=== PATIENT | female | born 2000 | race African-American/Black ===

== ENCOUNTER 2025-05-15 09:51 | Emergency (ER) | payer OTHER, SELFPAY ==
[2025-05-15 11:14] LABS: #Basophils Less than 0.03 10x3/uL (0.0-0.2); #Eosinophils 0.07 10x3/uL (0.0-0.5); #Monocytes 0.19 10x3/uL (0.0-1.1); #Neutrophils 2.93 10x3/uL (1.5-8.4); %Basophils 0.2 % (0.0-2.0); %Eosinophils 1.7 % (0.0-6.0); %Lymphocytes 21.3 % (18.0-47.0); %Monocytes 4.7 % (0.0-10.0); %Neutrophils 71.9 % (40.0-75.0); Hematocrit 33.4 % (34.9-44.5); Hemoglobin 11.2 g/dL (12.0-15.5); Mean Corpuscular Hemoglobin 28.3 pg (27.0-33.0); Mean Corpuscular Volume 84.3 fL (81.6-98.3); Platelet Count 286 10x3/uL (150-450); Red Blood Cell (RBC) Count 3.96 10x6/uL (3.90-5.03); White Blood Cell (WBC) Count 4.08 10x3/uL (3.5-10.5)
[2025-05-15 11:34] LABS: ALT (SGPT) Less than 4 U/L (Less than 34); AST (SGOT) 13 U/L (11-34); Albumin 3.8 g/dL (3.1-4.5); Alkaline Phosphatase 29 U/L (40-110); Anion Gap 12 mmol/L (10-20); BUN (Urea Nitrogen) 6 mg/dL (7.0-18.7); Bilirubin, Total 0.2 mg/dL (0.3-1.2); Calc. Creatinine Clearance 0 mL/min (70-130); Calcium 9.1 mg/dL (7.8-10.44); Carbon Dioxide 22 mmol/L (22-29); Chloride 106 mmol/L (98-107); Globulin 3.4 g/dL (2.4-3.5); Glucose 93 mg/dL (70-105); Potassium 3.6 mmol/L (3.5-5.1); Sodium 136 mmol/L (136-145)
[2025-05-15 12:25] LABS: Glucose, Urine (Dipstick) Normal (Negative); Leukocyte 100 (Negative); Protein, Urine (Dipstick) 30 mg/dl (Neg-Trace); Specific Gravity, Urine 1.020 (1.005-1.030)
[2025-05-15 12:27] LABS: Bacteria/HPF 1+ HPF (None Seen); CAUTI Indications for Culture Acute Hematuria; RBC/HPF 21-50 HPF (0-3)
[2025-05-15 12:28] LABS: Urine Culture Reflex Yes Yes
[2025-05-15] MEDS ORDERED: Ibuprofen 200 MG TAB ONE (13:59)
[2025-05-15] MEDS ORDERED: Acetaminophen 500 MG TAB ONE (14:00)
[2025-05-16 08:00] LABS: Chlamydia by PCR, Vaginal Swab Not Detected (NotDetected); GC by PCR, Vaginal Swab Not Detected (NotDetected)
== END 2025-05-15 14:33 | disposition home or self-care (01) ==
LOC: CSHERS 09:51
DX: O03.9 Complete or unspecified spontaneous abortion without complication (principal); N76.0 Acute vaginitis; B96.89 Other specified bacterial agents as the cause of diseases classified elsewhere
CPT/HCPCS: 36415; 76857; 80053; 81001; 84702; 85025; 86900; 86901; 87077; 87086; 87480; 87491; 87510; 87591; 87660; 88305; 90384; 96372